=== PATIENT | male | born 1970 | race Caucasian/White ===

== ENCOUNTER 2020-10-22 16:25 | Emergency (ER) | payer OTHER ==
[2020-10-22] MEDS ORDERED: DECADRON6 MG PO (19:45)
[2020-10-22] MEDS ORDERED: ASPIR-TRIN325 MG PO (19:45)
[2020-10-22] MEDS ORDERED: PROVENTIL HFA6.7 GM INH (19:47)
== END 2020-10-22 20:35 | disposition home or self-care (01) ==
LOC: ER1 16:25
DX: U07.1 COVID-19 (principal); F17.290 Nicotine dependence, other tobacco product, uncomplicated
CPT/HCPCS: 71045; 94664; 94760; 99284